=== PATIENT | male | born 1955 | race African-American/Black ===

== ENCOUNTER 2017-12-06 17:18 | Emergency (ER) | payer OTHER ==
[~2017-12-06] VITALS: Ht 172.7 cm; Wt 70.0 kg
[2017-12-06 17:18] VITALS: BP 130/96
[2017-12-06 17:40] LABS: HEMOGLOBIN 13.8 g/dl (14.0-18.0); IMMATURE GRANULOCYTES 0.4 % (0.0-1.0); MEAN CELL VOLUME 91.5 fL CALC (80.0-100.0); MEAN CORPUSCULAR HGB 30.1 pG CALC (26.0-32.0); MEAN CORPUSCULAR HGB CONC 32.9 g/L CALC (32.0-36.0); NEUT# 2.69 thou/uL (1.82-7.42); RED BLOOD COUNT 4.59 mill/uL (4.70-6.10); RED CELL DISTRI WIDTH 11.9 % (11.5-15.5)
[2017-12-06 18:05] LABS: ACT PARTIAL THROMBO TIME 27.1 SECONDS (20.0-32.5); PROTHROMBIN TIME 11.4 SECONDS (9.0-12.5)
[2017-12-06 18:06] LABS: ALBUMIN 4.4 g/dL (3.2-5.0); ALKALINE PHOSPHATASE 112 u/l (38-126); ANION GAP 16 (6-22 (CALC)); BUN 14 mg/dL (8-23); BUN/CREATININE RATIO 14 (12-20 (CALC)); CARBON DIOXIDE 26 mmol/l (22-30); CHLORIDE 104 mmol/l (95-108); GFR > 60 ML/MIN (>=60 (CALC)); GFR FOR AFR.AMER. > 60 ML/MIN (>=60 (CALC)); POTASSIUM 4.4 mmol/l (3.5-5.1); SGOT/AST 39 u/l (19-48); SGPT/ALT 43 u/l (11-66); SODIUM 141 mmol/l (137-146); TOTAL PROTEIN 7.5 g/dL (6.3-8.2)
[2017-12-06] MEDS ORDERED: AMLODIPINE5 MG PO (18:08)
[2017-12-06] MEDS ORDERED: ASPIRIN81 MG PO (18:08)
[2017-12-06] MEDS ORDERED: DIPHENHYDRAM25 MG PO (18:09)
[2017-12-06] MEDS ORDERED: OMEGA 31000 MG PO (18:09)
[2017-12-06] MEDS ORDERED: MINERI1 (18:10)
[2017-12-06] MEDS ORDERED: NAPROSYN250 MG PO (18:11)
[2017-12-06 18:18] LABS: MYOGLOBIN 57 ng/mL (0 - 121)
[2017-12-06 18:32] LABS: URINE BILIRUBIN - DIPSTICK NEGATIVE (NEGATIVE); URINE BLOOD DIPSTICK NEGATIVE (NEGATIVE); URINE COLOR YELLOW; URINE GLUCOSE - DIPSTICK NEGATIVE (NEGATIVE); URINE KETONE NEGATIVE (NEGATIVE); URINE LEUK ESTERASE NEGATIVE (NEGATIVE); URINE NITRITE - DIPSTICK NEGATIVE (Negative); URINE PH 6.5 (4.5-8.0); URINE PROTEIN - DIPSTICK NEGATIVE (NEG-TRACE); URINE UROBILINOGEN - DIPSTICK 0.2 E.U./dL (0.2)
[2017-12-06 18:33] LABS: BARBITURATES NEGATIVE (NEGATIVE); COCAINE NEGATIVE (NEGATIVE); METHADONE NEGATIVE (NEGATIVE); OXCYCODONE NEGATIVE (NEGATIVE); TETRAHYDROCANNABIONOL NEGATIVE (NEGATIVE); TRICYLIC ANTIDEPRESSANTS NEGATIVE (NEGATIVE); URINE CLARITY CLEAR
== END 2017-12-06 18:40 | disposition short-term general hospital (02) | DRG 66 ==
LOC: ED 17:18
PROVIDERS: Emergency Medicine
DX: I63.9 Cerebral infarction, unspecified (principal); G83.14 Monoplegia of lower limb affecting left nondominant side; G83.24 Monoplegia of upper limb affecting left nondominant side; R47.81 Slurred speech; I10 Essential (primary) hypertension; R29.704 NIHSS score 4; Y92.149 Unspecified place in prison as the place of occurrence of the external cause

== ENCOUNTER 2018-10-21 11:46 | Observation (INO) | payer OTHER ==
[~2018-10-21] VITALS: Ht 172.7 cm; Wt 66.7 kg
[~2018-10-21 11:46] MED LIST: AMLODIPINE5 MG PO; ASPIRIN81 MG PO; DIPHENHYDRAM25 MG PO; MINERI1; NAPROSYN250 MG PO; OMEGA 31000 MG PO
--- NOTE | 2018-10-21 11:48 | NUR ---
PT TO ROOM VIA EMS STRETCHER.
--- NOTE | 2018-10-21 12:00 | NUR ---
PT TO CT SCAN VIA STRETCHER WITH NURSE, Hussain PHAN.
[2018-10-21 12:20] LABS: HEMATOCRIT 46.4 % (39.0-50.0); HEMOGLOBIN 15.4 g/dl (14.0-18.0); IMMATURE GRANULOCYTES 0.3 % (0.0-5.0); MEAN CELL VOLUME 92.1 fL CALC (80.0-100.0); MEAN CORPUSCULAR HGB 30.6 pG CALC (26.0-32.0); MEAN CORPUSCULAR HGB CONC 33.2 g/L CALC (32.0-36.0); NEUT# 3.21 thou/uL (1.82-7.42); RED BLOOD COUNT 5.04 mill/uL (4.70-6.10); RED CELL DISTRI WIDTH 12.2 % (11.5-15.5)
[2018-10-21 12:29] LABS: GFR > 60 ML/MIN (>=60 (CALC)); GFR FOR AFR.AMER. > 60 ML/MIN (>=60 (CALC))
[2018-10-21 12:32] LABS: PROTHROMBIN TIME 10.9 SECONDS (9.0-12.5)
--- NOTE | 2018-10-21 13:10 | NUR ---
PT RESTING SUPINE IN NO DISTRESS. VSS. PT PLEASANT AND CONVERSIVE
[2018-10-21 13:18] LABS: ANION GAP 14 (6-22 (CALC)); BUN 16 mg/dL (8-23); BUN/CREATININE RATIO 19 (12-20 (CALC)); CARBON DIOXIDE 29 mmol/l (22-30); CHLORIDE 102 mmol/l (95-108); CREATININE 0.9 mg/dL (0.7-1.3); GFR > 60 ML/MIN (>=60 (CALC)); GFR FOR AFR.AMER. > 60 ML/MIN (>=60 (CALC)); POTASSIUM 3.9 mmol/l (3.5-5.1); SODIUM 140 mmol/l (137-146)
--- NOTE | 2018-10-21 14:15 | NUR ---
PT SITING UP IN BED IN NO DISTRESS. VSS. DENIES VILLEGAS. TWO GUARDS AT BEDSIDE
[2018-10-21] MEDS ORDERED: OMEGA-3 FISH1000 MG PO (14:17)
[2018-10-21] MEDS ORDERED: PRAVASTATIN40 MG PO (14:18)
[2018-10-21] MEDS ORDERED: AMLODIPINE5 MG PO (14:19)
[2018-10-21] MEDS ORDERED: NORVASC5 M1 PO (14:20)
--- NOTE | 2018-10-21 15:20 | NUR ---
PT AWARE OF HOLDING IN ED FOR BED AVAILABILITY ON MS. VSS. TWO GUARDS AT BEDSIDE,PT JOOEW. MONICAS
--- NOTE | 2018-10-21 16:30 | NUR ---
PT ALERT AND RESPONSIVE ABLE TO MAKE NEEDS KNOWN. HAS HAD 600CC YELLOW URINE OUTPUT IN ED. 2 GUARDS AT BEDSIDE. VSS. SUBRAMANIAN
--- NOTE | 2018-10-21 17:13 | NUR ---
TO ICU VIA STETCHER. GUARDS AT BEDSIDE
[2018-10-21 17:20] VITALS: BP 142/89
--- NOTE | 2018-10-21 17:20 | NUR ---
PT ARRIVED TO THE UNIT VIA STRETCHER ACCOMPANIED BY STAFF. IV SITE IS FREE FROM REDNESS OR EDEMA. TELE MONITOR IN PLACE 2 GUARDS PRESENT AT BEDSIDE.
--- NOTE | 2018-10-21 17:35 | NUR ---
ASSESSMENT IS COMPLETED: IV SITE IS FREE FROM REDNESS OR EDEMA. HR IS REG,PULSES ARE STRONG X4, ABD IS SOFT WITH ACTIVE BS. BREATH SOUNDS ARE CLEAR, BILATERALLY. TELE MONITOR IN PLACE. [address]
[2018-10-21 19:00] VITALS: BP 136/95
--- NOTE | 2018-10-21 19:00 | NUR ---
PT RESTING IN BED WITH REID AT BEDSIDE, RIGHT LEG SHACKLED. PT SPEECH IS GARBLED AND DIFFICULT TO UNDERSTAND. REID SAY THAT IS HIS NORMAL AND HAS BEEN FOR AWHILE. PT REQUESTING AN ENSURE. NO OTHER NEEDS AT THIS TIME. CALL PACHECO IN REACH. WILL CONTINUE TO MONITOR.
--- NOTE | 2018-10-21 21:45 | NUR ---
PT RESTING IN BED WATCHING TV, GAURD AT BEDSIDE, RIGHT LEG SHACKLED. PT IS A&O x3. ASSESMEN COMPLETED AT THIS TIME(SEE INTERVENTIONS)LUNG SOUNDS CLEAR, HEART SOUNDS NORMAL, BOWEL SOUNDS ACTIVE, NO SWELLING OR EDEMA NOTED. NO NEEDS AT THIS TIME. CALL PACHECO IN REACH. WILL CONTINUE TO MONITOR.
[2018-10-22 00:26] VITALS: BP 130/81
[2018-10-22 03:30] VITALS: BP 102/66
[2018-10-22 05:10] LABS: HEMATOCRIT 43.1 % (39.0-50.0); HEMOGLOBIN 14.5 g/dl (14.0-18.0); IMMATURE GRANULOCYTES 0.4 % (0.0-5.0); MEAN CELL VOLUME 91.5 fL CALC (80.0-100.0); MEAN CORPUSCULAR HGB 30.8 pG CALC (26.0-32.0); MEAN CORPUSCULAR HGB CONC 33.6 g/L CALC (32.0-36.0); NEUT# 4.18 thou/uL (1.82-7.42); RED BLOOD COUNT 4.71 mill/uL (4.70-6.10)
[2018-10-22 05:46] LABS: ALBUMIN 3.6 g/dL (3.2-5.0); ALKALINE PHOSPHATASE 110 u/l (38-126); AMYLASE 108 u/l (30-110); ANION GAP 14 (6-22 (CALC)); BILIRUBIN, TOTAL 0.9 mg/dL (0.0-1.4); BUN 23 mg/dL (8-23); BUN/CREATININE RATIO 23 (12-20 (CALC)); CARBON DIOXIDE 27 mmol/l (22-30); CHLORIDE 103 mmol/l (95-108); GFR > 60 ML/MIN (>=60 (CALC)); GFR FOR AFR.AMER. > 60 ML/MIN (>=60 (CALC)); LIPASE 260 u/l (23-300); MAGNESIUM 1.9 mg/dL (1.6-2.3); SGOT/AST 36 u/l (19-48); SODIUM 141 mmol/l (137-146); TOTAL PROTEIN 6.5 g/dL (6.3-8.2)
[2018-10-22 07:31] VITALS: BP 107/68
--- NOTE | 2018-10-22 07:50 | NUR ---
ASSESSMENT IS COMPLETED: IV SITE IS FREE FROM REDNESS OR EDEMA. HR IS REG, PULSES ARE STRONG X4, ABD IS SOFT WITH ACTIVE BS. BREATH SOUNDS ARE CLEAR, BILATERALLY, TELE MONITOR IN PLACE. 2 GUARDS PRESENT IN THE ROOM. CONTINUE TO OSBERVE AND MONITOR. CALL PACHECO WITHIN REACH
--- NOTE | 2018-10-22 12:05 | NUR ---
PT IS RELAXING IN BED WITH NO DISTRESS NOTED. IV SITE IS FREE FROM REDNESS OR EDEMA.
[2018-10-22 13:00] VITALS: BP 112/72
--- NOTE | 2018-10-22 17:55 | NUR ---
PT IS BEING TRANSPORTED TO THE VEHICLE AND GUARDS PRESENT IV SITE DISCONTINUED CATHETER INTACT. ALL PAPERS AND BELONGINGS. TAKEN WITH PT.
== END 2018-10-22 18:00 | disposition designated cancer center or children's hospital (05) | DRG 948 ==
LOC: ED 11:46 → ED-I 14:15 → ED 14:29 → MS2 14:30
PROVIDERS: Family Medicine; ADMIT Internal Medicine Nephrology; ATTEND Internal Medicine Nephrology
DX: R53.1 Weakness (principal); H53.8 Other visual disturbances; R47.81 Slurred speech; I10 Essential (primary) hypertension; M19.90 Unspecified osteoarthritis, unspecified site; B19.20 Unspecified viral hepatitis C without hepatic coma; I69.90 Unspecified sequelae of unspecified cerebrovascular disease
CPT/HCPCS: G0378; Q9967